=== PATIENT | female | born 1975 | race African-American/Black ===

== ENCOUNTER → 2021-04-13 00:55 | Outpatient (CLI) | payer OTHER, SELFPAY ==
[2021-04-13 18:54] LABS: SARS-CoV-2 RNA PCR Negative
== END ==
PROVIDERS: Visit Provider Obstetrics & Gynecology
DX: Z01.812 Encounter for preprocedural laboratory examination (principal); Z20.822 Contact with and (suspected) exposure to COVID-19
CPT/HCPCS: C9803; U0003; U0005

== ENCOUNTER 2021-04-17 00:16 | Day surgery (SDC) | payer OTHER, SELFPAY ==
[2021-04-03 12:55] VITALS: BMI 29.3
--- NOTE | 2021-04-03 13:05 | PC.NURSE ---
Report to the Outpatient Waiting Room, entrance under the green pavilion located off [facility], at time 0600 on date 04/17/21. OR Time: 0730. - You and your visitor will be asked a series of questions to screen for COVID 19 for your protection. - A mask is required within the hospital. - Only one visitor is allowed at this time. Patient visitors will be guided where to wait when not with patient. Preoperative COVID Testing Requirements: No COVID Test needed if: (proof is required; if not received patient will have Rapid Test prior to entry) - Patient has received COVID Vaccine at least 14 days prior to procedure date or - Patient has positive COVID test result within last 90 days of surgery date. COVID Test needed if above criteria is not met If not COVID vaccinated a COVID test must be conducted within 72 hours of surgery and patient is asked to isolate self from time of testing until procedure. You will go to the [facility] [facility] for your COVID testing. The [facility] [facility] is located at the corner of [address] [facility]. You will only be called if COVID results are positive and your surgeon may reschedule your elective surgery date. Patients may have clear liquids (water, carbonated beverages, clear teas, apple juice) until 3 hours prior to surgery with a maximum of 20 ounces. - No food from midnight until time of surgery - Infants may have breast milk until 4 hours before surgery, formula 6 hours prior to surgery. - Children will be allowed to drink immediately following surgery. If applicable, please bring a bottle or sippy cup to assist with drinking. Juice, water, soda, and popsicles are readily available. For infants on formula, please bring formula the day of surgery. Pacifiers are allowed. Take the following medications with a SIP of water the morning of surgery: N/A Medications to discontinue per physician: VITAMINS/SUPPLEMENTS Date to take last dose: 04/13/21 Please no make-up, nail urdu, hairspray, perfume, deodorant, or body powder the day of surgery. No jewelry (including any body piercings) or valuables the day of surgery, leave them at home. Please take a shower or bath the night before, or the morning of, surgery with an antibacterial soap. Wear comfortable, loose fitting clothing. Children are encouraged to wear pajamas. - Jewelry must be removed prior to entering the operating room. Rings and piercings that are not removed may be cut off. - The hospital will not accept responsibility for valuables. - Please leave all valuables, including medications, at home the day of surgery. If you are going home after surgery, a licensed solid waste truck driver must drive you home. - NO public transportation without another adult. - We recommend that an adult stay with you for 24 hours following discharge. - We also recommend that you do not drive, make important decision, drink alcoholic beverages, or take any drugs that were not prescribed by your health care provider for at least 24 hours after your discharge time. For Pediatric surgeries, we recommend two adults accompany the child home (only one inside the building at this time). Follow any additional instructions given to you from your surgeon. Telephone instructions given to CLYDE BARKER and asked if any additional questions and then verbalized understanding. Patient advised to call surgeon office or pre surgery nurse liaison [phone] if any additional questions.
[2021-04-17] MEDS: ACETAMINOPHEN 500 MG TABLET 1000 MG PO (06:26)
[2021-04-17 06:47] VITALS: BP 120/78; PULSE 70; RESP 16; TEMP 36.4; O2SAT 99
--- NOTE | 2021-04-17 07:04 | WPDANESEPPF ---
Anes - Initial Pre Proc Eval Procedure: Operation Date: 04/17/21 07:30 Proposed Procedures p Hysteroscopy Dilation and Curettage - Cade Gutierrez MD Date/Time: 04/17/21 07:04 Surgeon: Cade Gutierrez MD Pre Op Diagnosis: abnormal uterine bleeding Patient Data Age: 45 Gender: F Height: 1.68 m Weight: 82.2 kg Last Vital Signs Temp 36.4 C L 04/17/21 06:47 Pulse 70 04/17/21 06:47 Resp 16 04/17/21 06:47 BP 120/78 04/17/21 06:47 Pulse Ox 99 04/17/21 06:47 Allergies Allergy/AdvReac Type Severity Reaction Status Date / Time No Known Allergies Allergy Verified 04/17/21 06:21 Home Medications Medication Instructions Recorded Confirmed Type cholecalciferol (vitamin D3) 50 mcg PO DAILY 04/03/21 04/17/21 History [Vitamin D3] Patient hx anesthesia problems: none Family hx anesthesia problems: none Results Review: All pre-operative results and documents have been reviewed as part of the pre-operative evaluation. [facility] Social History Social History Smoking status: Never smoker Alcohol intake: current Alcohol use details: 2/MONTH Substance use: never Substance use type: does not use Living arrangements: with family Spiritual care concerns: No Anes - Eval Final PreProcedure Day of Procedure 04/17/21 07:04 Patient weight: overweight Heart: regular rate and rhythm Lungs: clear to auscultation Airway: Mallampati scale class 1 Neurological: alert and oriented Last oral intake: >/= 8 hours ASA classification: II Emergent: no Anesthetic plan: proceed Anesthesia type and monitoring: general GIVS and standard monitoring Results Review: All pre-operative results and documents have been reviewed as part of the pre-operative evaluation. Informed Consent: The patient's anesthetic plan and its attendant risks and benefits were discussed with the patient/family/POA. Questions were solicited and answers provided to the satisfaction of the patient/family/POA.
[2021-04-17] MEDS: LACTATED RINGERS 1,000 ML 30 ML IV CONT (07:14)
--- NOTE | 2021-04-17 07:29 | PM.HPGS ---
History of Present Illness History of Present Illness Consent: Risks, benefits, and alternatives have been discussed and questions answered. Patient agrees to proceed with procedure. Chief complaint: abnormal uterine bleeding Narrative: Ara Currie is a 45 year old female presented with abnormal bleeding to office with history of fibroids. Review of Systems Constitutional: Constitutional: Reports fatigue, Reports headache(s) and Reports lethargy PMFSH Past Medical History Medical History (Updated 04/17/21 @ 07:32 by Cade Gutierrez MD) Abnormal uterine bleeding (AUB) Surgical History Surgical History (Updated 04/17/21 @ 07:31 by Cade Gutierrez MD) S/P emergency Social History Social History Smoking status: Never smoker Alcohol intake: current Alcohol use details: 2/MONTH Substance use: never Substance use type: does not use Living arrangements: with family Spiritual care concerns: No Meds Home Medications and Allergies Home Medications Medication Instructions Recorded Confirmed Type cholecalciferol (vitamin D3) 50 mcg PO DAILY 04/03/21 04/17/21 History [Vitamin D3] Allergies Allergy/AdvReac Type Severity Reaction Status Date / Time No Known Allergies Allergy Verified 04/17/21 06:21 Vital Signs Vital Signs - 24 hr 04/17/21 06:47 Temperature 36.4 C L Pulse Rate 70 Respiratory Rate 16 Blood Pressure 120/78 Pulse Oximetry 99 Exam Const: General: cooperative Cardio: Rate: regular rate Rhythm: regular rhythm GI: Inspection: normal to inspection : Speculum Exam - Vagina: normal appearance of the vagina Bimanual exam- vagina & uterus: bladder normal to palpation, boggy and enlarged Assessment and Plan Assessment and plan (1) Abnormal uterine bleeding (AUB): Code(s): N93.9 - Abnormal uterine and vaginal bleeding, unspecified Status: Acute Additional Plan Scheduled for a hysteroscopy with dilation and curettage. Risk and benefits reviewed.
--- NOTE | 2021-04-17 07:33 | WPDHPUPDATE1 ---
History and Physical Update Update Date/Time: 04/17/21 07:33 History and Physical has been reviewed, including an updated exam of the patient. There are NO changes in the patient's condition. Risks, benefits, and alternatives have been discussed and questions answered. Patient agrees to proceed with procedure.
[2021-04-17 08:10] VITALS: BP 140/97; PULSE 96; RESP 12; O2SAT 97
[2021-04-17 08:55] VITALS: BP 129/89; PULSE 68; RESP 14
[2021-04-17] MEDS: oxyCODONE HCL (*CRX) 5 MG TAB IR PO (08:56)
--- NOTE | 2021-04-18 07:36 | P.OP_ITS ---
Procedure Note - Detailed Date of Procedure 04/18/21 Pre-op Diagnosis abnormal uterine bleeding Post-op Diagnosis same Procedure Performed hysteroscopy dilation and curettage Surgeon Cade Gutierrez MD Anesthesia MAC and local Findings Enlarged uterus bilateral ostia Description of Procedure patient was taken operating room with IV running she was prepped and draped in a normal sterile fashion. She was placed and a lithotomy position. [place] speculum was placed into the vagina anterior lip of the cervix was grasped with a single-tooth tenaculum the cervix was injected at the 2 and 10 o'clock position with 5cc of lidocaine bilaterally. The cervix was serially dilated with Hegar dilators and the uterus was sounded to 10cm the hysteroscope was introduced into the uterine cavity noted her larger in cavity with bilateral ostia. The hysteroscope was removed a sharp curettage was performed in all 4 quadrants of the uterus specimen. The specimen was sent to pathology tenaculum site was hemostatic and the instruments were removed from the vagina patient was taken to recovery room in stable condition Estimated Blood Loss 10 Drains No Packing No Pathology yes Complications None Condition stable Disposition floor
== END 2021-04-17 09:35 | disposition home or self-care (01) ==
PROVIDERS: PCP Internal Medicine; Visit Provider Obstetrics & Gynecology
PROC: 0U5B8ZZ Destruction of Endometrium, Via Natural or Artificial Opening Endoscopic (ICD-10-PCS; CPT 58563; principal; 2021-04-17 07:30)
DX: N93.9 Abnormal uterine and vaginal bleeding, unspecified (principal); N85.8 Other specified noninflammatory disorders of uterus
CPT/HCPCS: 58558; 88305; A9270; J1885; J2250; J2704; J7030; J7120